=== PATIENT | female | born 1995 | race Caucasian/White ===

== ENCOUNTER 2017-11-14 13:19 | Emergency (ER) | payer OTHER ==
[~2017-11-14] VITALS: Ht 182.9 cm; Wt 133.0 kg
[2017-11-14 13:25] VITALS: TEMP 36.7; Ht 182.9 cm; Wt 133.0 kg
[2017-11-14] MEDS ORDERED: CEPH500C2 PO (13:46)
[2017-11-14] MEDS ORDERED: SULF800T23 PO (13:46)
--- NOTE | 2017-11-14 13:46 | EMERGENCY ROOM VISIT NOTE ---
ED Visit Note First contact with patient: 13:27 CHIEF COMPLAINT: Infection of the right leg 1.5 weeks HISTORY OF PRESENT ILLNESS: Patient is a 22-year-old white female who presents the emergency department for evaluation of an infection on her right leg. She states her symptoms have been present for about a week and a half. She notes 2 small the red circles on the outside of her right leg. One is on the lateral aspect of the right thigh, the other is on the lateral aspect of the right calf. She is concerned that they could be spider bites. T site on the thigh she reports is improving on its own, site on her calf is becoming more red and painful, and is worse when she walks on it. She rate her pain a 9/10. She states the pain radiates to her knee slightly. She has tried taking Tylenol and applying triple antibiotic ointment to the area. She states that the ointment made the site on her calf worse. She denies any prior history of skin infections or abscesses. She is not aware of any injury to the area prior to the onset of her symptoms. She did get a new tattoo on her right calf about 2 weeks ago, it is just distal to the site of infection. She reports that the tattoo is healing well otherwise however. She denies any drainage or discharge from the area. REVIEW OF SYSTEMS: Review of systems as per HPI. All other systems reviewed were negative. At least 6 systems reviewed. PMH: Electronic medical records are reviewed and summarized as above/below. See Problem List. She reports that her tetanus is up-to-date. SOCIAL HISTORY: Patient lives at home with family in [facility], she reports that she is staying with family members in a hotel locally while her nephew is at [place]. Non-smoker. PHYSICAL EXAM: Vital Signs: Reviewed Nurse's notes. GENERAL: Patient is a well-appearing obese 22-year-old white female who is awake and alert and in no acute distress. NEUROLOGICAL: Alert and cooperative. Sensory and motor functions grossly intact. INTEGUMENTARY: Examination of the patient's right leg show a well-healing tattoo on the lateral right calf. Proximal to the tattoo, the patient has a very small scabbed over wound with surrounding erythema, warmth and induration. There is no fluctuance noted. She has a smaller similar appearing wound on the lateral right thigh, with minimal tenderness and erythema. There is no lymphangitic streaking appreciated. MUSCULOSKELETAL: The right lower extremity is neurovascularly intact. Examination of the right knee does not demonstrate any erythema, soft tissue swelling or joint effusion. Knee range of motion is full. EMERGENCY DEPARTMENT COURSE: The patient was seen and examined as above. She appears to have a localized wound infection on the lateral right calf. It is slightly indurated, however not overtly fluctuant and it was not felt that there was any drainable abscess. She does not have any findings that are consistent with overt cellulitis. I do not suspect DVT or superficial thrombophlebitis. The tattoo appears to be healing well, does not appear to be a source of infection. Patient was encouraged to clean the area well with soap and water, apply warm compresses, and return to the emergency department if her symptoms are worsening. She will be placed on Keflex and Bactrim. She was advised to follow-up with her doctor when she returns home for further care and management. Medication reconciliation: I attest that I have personally reviewed the patient' s current medication list. Blood pressure screening: Patient was found to have a slightly elevated blood pressure due to circumstances. I do not believe that the patient requires hypertension monitoring. Problem List Medical Problems: (1) Anxiety Status: Chronic (2) Asthma Status: Chronic (3) Bipolar disorder Status: Chronic (4) Depression Status: Chronic (5) Pulmonary valve stenosis Status: Chronic Current/Historical Medications Scheduled Cephalexin Monohydrate (Keflex), 500 MG PO QID Sulfa/Trimethoprim (Bactrim Ds 800MG/160MG), 1 TAB PO BID Vital Signs Date Time Temp Pulse Resp B/P (MAP) Pulse Ox O2 Delivery O2 Flow Rate FiO2 11/14/17 13:48 93 18 143/89 93 11/14/17 13:25 36.7 93 18 143/89 93 Room Air Departure Information Impression Primary Impression: Skin infection Prescriptions Sulfa/Trimethoprim (Bactrim Ds 800MG/160MG) Tab 1 TAB PO BID, #14 TAB Prov: Vida Colon PA 11/14/17 Cephalexin Monohydrate (KEFLEX) 500 Mg Cap 500 MG PO QID for 7 Days, #28 CAP Prov: Vida Colon PA 11/14/17 Referrals No Doctor, Assigned (PCP) Patient Instructions My [facility] Additional Instructions Cephalexin(Keflex) 500mg: Take one pill four times daily for 7 days for your skin infection. All antibiotics can cause diarrhea. If this occurs and you feel worse or it does not resolve in 1-2 days follow up with your doctor or return to the Emergency Department as this could be signs of serious underlying problems. Any medication can cause an allergic reaction, stop the pills immediately and return to the ER for rash, hives, breathing difficulties, or swelling. Trimethoprim-Sulfamethoxazole(Bactrim DS): Take one pill twice daily for 7 days for your skin infection. All antibiotics can cause diarrhea. If this occurs and you feel worse or it does not resolve in 1-2 days follow up with your doctor or return to the Emergency Department as this could be signs of serious underlying problems. Any medication can cause an allergic reaction, stop the pills immediately and return to the ER for rash, hives, breathing difficulties, or swelling. Ibuprofen(Motrin, Advil) may be used for fever or pain. Use 600mg every six hours as needed. Take with food. Avoid using more than 2400mg in a 24 hour period. Do not use 2400mg per day for more than three consecutive days without physician direction. Prolonged inappropriate use can lead to stomach upset or ulcers. (AND/OR) Acetaminophen(Tylenol) may be used for fever or pain. Use 1000mg every six hours as needed. Avoid using more than 3000mg in a 24 hour period. Warm compresses to the affected area 4 times daily for 15-20 minutes. Rest and drink plenty of fluids. Continue current medications. Return to the ER for severe pain, persistent fevers, spreading redness, or any worsening of your condition. Follow up with your primary physician within 2-3 days for a recheck of the current condition.
[2017-11-14 13:48] VITALS: BP 143/89; PULSE 93; O2SAT 93
== END 2017-11-14 13:52 | disposition home or self-care (01) ==
LOC: C.EDB 13:22 → C.EDD 13:52
DX: L08.9 Local infection of the skin and subcutaneous tissue, unspecified (principal); F41.9 Anxiety disorder, unspecified; J45.909 Unspecified asthma, uncomplicated; F31.9 Bipolar disorder, unspecified; I37.0 Nonrheumatic pulmonary valve stenosis